=== PATIENT | male | born 1980 | race Caucasian/White ===

== ENCOUNTER 2017-11-03 16:08 | Emergency (ER) | payer OTHER ==
[~2017-11-03] VITALS: Ht 198.1 cm; Wt 149.7 kg
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
[2017-11-03 16:36] LABS: BASOPHILS # (AUTO) 0.1 10^3/uL (0.0-0.1); BASOPHILS % (AUTO) 0 % (0-10); EOSINOPHILS # (AUTO) 0.4 10^3/uL (0.0-0.3); EOSINOPHILS % (AUTO) 3 % (0-10); HEMATOCRIT 40 % (40-54); HEMOGLOBIN 14.3 G/DL (13.3-17.7); LYMPHOCYTES # (AUTO) 3.4 X 10^3 (1.0-4.0); LYMPHOCYTES % (AUTO) 24 % (12-44); MEAN CORPUSCULAR HEMOGLOBIN 32 PG (25-34); MEAN CORPUSCULAR HGB CONC 36 G/DL (32-36); MEAN CORPUSCULAR VOLUME 90 FL (80-99); MEAN PLATELET VOLUME 10.7 FL (7.4-10.4); MONOCYTES # (AUTO) 0.7 X 10^3 (0.0-1.0); MONOCYTES % (AUTO) 5 % (0-12); NEUTROPHILS # (AUTO) 9.5 X 10^3 (1.8-7.8); NEUTROPHILS % (AUTO) 68 % (42-75); PLATELET COUNT 315 10^3/uL (130-400); RED BLOOD COUNT 4.45 10^6/uL (4.35-5.85); RED CELL DISTRIBUTION WIDTH 13.4 % (10.0-14.5)
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
[2017-11-03] MEDS ORDERED: BACL10TA PO (16:54)
[2017-11-03] MEDS ORDERED: RT-ALBUINH IH (16:54)
[2017-11-03] MEDS ORDERED: AMLO10TA2 PO (16:54)
[2017-11-03] MEDS ORDERED: BUDE1AMP IH (16:54)
[2017-11-03] MEDS ORDERED: OXYC-202 PO ×2 (16:54→17:41)
[2017-11-03] MEDS ORDERED: MONT10TA21 PO (16:54)
[2017-11-03] MEDS ORDERED: LISI1TAB8 PO (16:54)
[2017-11-03] MEDS ORDERED: PREG75CA PO (16:54)
[2017-11-03] MEDS ORDERED: BUPR150T14 PO (16:54)
[2017-11-03] MEDS ORDERED: KETOROLAC 30 MG/ML VIAL IVP ONE (17:00)
[2017-11-03] MEDS ORDERED: fentaNYL INJECTION 100 MCG/2 ML AMP IVP ONE (17:00)
[2017-11-03] MEDS ORDERED: LIDOCAINE 2% 20 ML (XYLOCAINE) VIAL INJ ONE (17:00)
[2017-11-03 17:02] LABS: ALANINE AMINOTRANSFERASE 35 U/L (0-55); ALBUMIN 4.1 GM/DL (3.2-4.5); ALKALINE PHOSPHATASE 89 U/L (40-136); BILIRUBIN,TOTAL 0.4 MG/DL (0.1-1.0); BUN/CREATININE RATIO 20; CALCIUM 9.5 MG/DL (8.5-10.1); CARBON DIOXIDE 24 MMOL/L (21-32); CHLORIDE 105 MMOL/L (98-107); CREATINE KINASE 202 U/L (30-200); GFR ESTIMATED > 60; GLUCOSE 155 MG/DL (70-105); POTASSIUM 4.1 MMOL/L (3.6-5.0); SODIUM 139 MMOL/L (135-145); TOTAL PROTEIN 7.7 GM/DL (6.4-8.2)
[2017-11-03 17:07] LABS: MYOGLOBIN SERUM 69.2 NG/ML (10.0-92.0)
--- NOTE | 2017-11-03 17:25 | Diagnostic Imaging Report ---
PROCEDURE: US left lower extremity venous. TECHNIQUE: Multiple real-time grayscale images were obtained over the left lower extremity in various projections. Additional duplex Doppler and color Doppler images were also obtained. INDICATION: Left leg pain and swelling. FINDINGS: Examination of the left leg shows normal augmentation, compression and color Doppler flow with no thrombosis or other abnormality seen. IMPRESSION: No abnormality is seen. Dictated by: Dictated on workstation # [id number]
[2017-11-03 17:44] VITALS: BP 145/90
== END 2017-11-03 17:52 | disposition home or self-care (01) ==
LOC: EDUNIT# 16:08 → ER 16:11
DX: S80.12XA Contusion of left lower leg, initial encounter (principal); Z79.01 Long term (current) use of anticoagulants; V03.90XA Pedestrian on foot injured in collision with car, pick-up truck or van, unspecified whether traffic or nontraffic accident, initial encounter
CPT/HCPCS: 36415; 73590; 80053; 82550; 83874; 85025; 96374; 96375

== ENCOUNTER 2022-10-08 01:04 | Emergency (ER) | payer MEDICAID, OTHER ==
[~2022-10-08] VITALS: Ht 198 cm; Wt 172.0 kg
[~2022-10-08 01:04] MED LIST: AMLO-251 PO; BACL10TA PO; BUDE1AMP IH; BUPR-105 PO; LISI1TAB46 PO; MONT-47 PO; OXYC1TAB12 PO; PREG75CA PO; RT-ALBUINH IH
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
[2022-10-08] MEDS ORDERED: morphine INJ 10 MG/ML 1ML (SYR OR VIAL) IVP STA ×2 (01:41→02:41)
[2022-10-08] MEDS ORDERED: NS IV 1000 ML 1,000 ML IV SCH (01:45)
[2022-10-08 01:48] LABS: BASOPHILS # (AUTO) 0.1 10^3/uL (0.0-0.1); BASOPHILS % (AUTO) 1 % (0-10); EOSINOPHILS # (AUTO) 0.3 10^3/uL (0.0-0.3); EOSINOPHILS % (AUTO) 3 % (0-10); HEMATOCRIT 47 % (40-54); HEMOGLOBIN 16.1 g/dL (13.3-17.7); LYMPHOCYTES # (AUTO) 2.6 10^3/uL (1.0-4.0); LYMPHOCYTES % (AUTO) 24 % (12-44); MEAN CORPUSCULAR HEMOGLOBIN 31 pg (25-34); MEAN CORPUSCULAR HGB CONC 34 g/dL (32-36); MEAN CORPUSCULAR VOLUME 90 fL (80-99); MEAN PLATELET VOLUME 10.6 fL (9.0-12.2); MONOCYTES # (AUTO) 0.9 10^3/uL (0.0-1.0); MONOCYTES % (AUTO) 8 % (0-12); NEUTROPHILS % (AUTO) 64 % (42-75); PLATELET COUNT 251 10^3/uL (130-400); WHITE BLOOD COUNT 10.9 10^3/uL (4.3-11.0)
[2022-10-08 01:52] LABS: POTASSIUM 3.6 MMOL/L (3.6-5.0)
[2022-10-08 01:53] LABS: CALCIUM 9.2 MG/DL (8.5-10.1)
[2022-10-08 01:58] LABS: CREATININE SERUM 0.7 MG/DL (0.60-1.30)
[2022-10-08] MEDS ORDERED: RX-ONDANSETRON 4 MG ODT (ZOFRAN) PPK #4 PO STA (02:41)
[2022-10-08 02:52] VITALS: BP 126/84
== END 2022-10-08 02:58 | disposition home or self-care (01) ==
LOC: EDUNIT# 01:04 → ER 01:06
DX: M54.50 Low back pain, unspecified (principal); G89.29 Other chronic pain; R11.2 Nausea with vomiting, unspecified; E66.01 Morbid (severe) obesity due to excess calories; Z79.1 Long term (current) use of non-steroidal anti-inflammatories (NSAID); Z68.41 Body mass index [BMI] 40.0-44.9, adult; Z28.310 Unvaccinated for COVID-19; W19.XXXA Unspecified fall, initial encounter
CPT/HCPCS: 36415; 80048; 85025